=== PATIENT | male | born 1955 | race Hispanic/Latino ===

== ENCOUNTER 2016-10-15 20:32 | Observation (INO) | payer OTHER ==
[2016-10-15] MEDS ORDERED: Iohexol 240 (50 ml) PO ONE (21:10)
[2016-10-15] MEDS ORDERED: Sodium Chloride 0.9% 1,000 ML IV STA (21:11)
[2016-10-15 21:25] LABS: BASO # 0.1 K/uL (0.0-0.2); BASO % 0.8 % (0.0-2.0); EOS # 0.3 K/uL (0.0-0.7); HEMATOCRIT 43.7 % (35.0-51.0); LYMPH % 9.7 % (20.0-40.0); MEAN CELL VOLUME 86.2 fl (80.0-94.0); MEAN CORPUSCULAR HEMOGLOBIN 29.1 pg (27.0-31.0); MEAN CORPUSCULAR HGB CONC 33.7 g/dL (33.0-37.0); MONO # 0.5 K/uL (0.0-0.8); MONO % 5.1 % (0.0-10.0); NEUT # 8.3 K/uL (1.8-7.0); NEUT % 81.4 % (50.0-75.0); PLATELET COUNT 220 K/uL (130-400); WHITE BLOOD COUNT 10.2 K/uL (4.8-10.8)
[2016-10-15 21:35] LABS: ALB/GLOB RATIO 1.5 (1.0-2.1); ALKALINE PHOSPHATASE 88 U/L (38-126); ALT/SGPT 32 U/L (21-72); AST/SGOT 23 U/L (17-59); BILIRUBIN,TOTAL 0.8 mg/dl (0.2-1.3); BLOOD UREA NITROGEN 18 mg/dl (9-20); CARBON DIOXIDE 25 mmol/L (22-30); CHLORIDE 104 mmol/L (98-107); GFR AFRICAN-AMERICAN > 60; GLUCOSE,RANDOM 115 mg/dL (75-110); LIPASE 108 U/L (23-300); POTASSIUM 4.3 MMOL/L (3.6-5.0); SODIUM 141 mmol/l (132-148); TOTAL PROTEIN 7.9 G/DL (6.3-8.2)
--- NOTE | 2016-10-15 21:40 | ED PDOC ---
HPI: Abdomen Time Seen by Provider: 10/15/16 21:02 Chief Complaint (Nursing): Abdominal Pain Chief Complaint (Provider): Abdominal Pain History Per: Patient History/Exam Limitations: no limitations Onset/Duration Of Symptoms: Hrs Additional Complaint(s): Patient is a 60 year old male with a past medical history of Crohn's disease, gastroesophageal reflux disease, and hypertension presenting to the emergency department for right lower quadrant abdominal pain since 6:30 p.m. today with associated nausea and retching (but no emesis). Reports that he usually has left -sided abdominal cramps because of his Crohn's but this time the pain is different in quality, intensity, and location. Of note, he was instructed by his GI doctor to discontinue one of his medications for Crohn's a week ago but restarted it last night. Denies fever. PCP: none provided. Past Medical History Reviewed: Historical Data, Nursing Documentation, Vital Signs Vital Signs: Last Vital Signs Temp 97.8 F 10/15/16 20:43 Pulse 82 10/16/16 00:14 Resp 16 10/16/16 00:14 BP 145/88 10/16/16 00:14 Pulse Ox 100 10/16/16 01:00 - Medical History PMH: Crohn's Disease, GERD, HTN - Surgical History Surgical History: No Surg Hx - Family History Family History: States: Unknown Family Hx - Social History Current smoker - smoking cessation education provided: No Ex-Smoker (has not smoked in the last 12 months): No Alcohol: None Drugs: Denies - Home Medications Home Medications: Ambulatory Orders Medication Instructions Recorded Acetaminophen/Hydrocodone Bi 1 tab PO Q8 #12 tab 10/16/16 [Vicodin 300 mg-5 mg] Docusate Sodium [Dulcolax Stool 100 mg PO DAILY #15 capsule 10/16/16 Softener] Ibuprofen [Motrin Tab] 600 mg PO Q6 #30 tab 10/16/16 Tamsulosin [Flomax] 0.4 mg PO DAILY #12 cap 10/16/16 - Allergies Allergies/Adverse Reactions: Allergies Allergy/AdvReac Type Severity Reaction Status Date / Time No Known Allergies Allergy Verified 10/15/16 21:10 Review of Systems ROS Statement: Except As Marked, All Systems Reviewed And Found Negative Constitutional: Negative for: Fever Gastrointestinal: Positive for: Nausea, Abdominal Pain (Right lower quadrant abdominal pain. Abdomen is more bloated than usual.), Other (retching). Negative for: Vomiting Physical Exam - Reviewed Nursing Documentation Reviewed: Yes Vital Signs Reviewed: Yes - Physical Exam Appears: Positive for: Well, Non-toxic, No Acute Distress Head Exam: Positive for: ATRAUMATIC, NORMAL INSPECTION, NORMOCEPHALIC Skin: Positive for: Normal Color, Warm, Dry Eye Exam: Positive for: EOMI, Normal appearance, PERRL ENT: Positive for: Normal ENT Inspection Neck: Positive for: Normal, Painless ROM, Supple Cardiovascular/Chest: Positive for: Regular Rate, Rhythm. Negative for: Murmur Respiratory: Positive for: Normal Breath Sounds. Negative for: Accessory Muscle Use, Respiratory Distress Gastrointestinal/Abdominal: Positive for: Tenderness (Diffuse mild abdominal tenderness. No point tenderness. ), Distended. Negative for: Normal Exam Back: Positive for: Normal Inspection. Negative for: L CVA Tenderness, R CVA Tenderness Extremity: Positive for: Normal ROM. Negative for: Pedal Edema Neurologic/Psych: Positive for: Alert, Oriented - Laboratory Results Result Diagrams: 10/15/16 21:18 10/15/16 21:18 - ECG O2 Sat by Pulse Oximetry: 100 (RA) Pulse Ox Interpretation: Normal Medical Decision Making Medical Decision Making: Time: 21:00 Initial impression: Crohn's disease flare up vs. appendicitis Initial Plan: Labs CT A/P PO and IV Contrast Omnipaque 50 ml PO Morphine 4 mg IVP Normal Saline 1 L Zofran 4 mg IVP Protonix 40 mg IVP Urinalysis Stat ED Observation Reevaluation Scribe Attestation: Documented by Samantha Conner, acting as a scribe for Kaiden Lynne MD. Provider Scribe Attestation: All medical record entries made by the Scribe were at my direction and personally dictated by me. I have reviewed the chart and agree that the record accurately reflects my personal performance of the history, physical exam, medical decision making, and the department course for this patient. I have also personally directed, reviewed, and agree with the discharge instructions and disposition. ED OBSERVATION Discharge: Yes Date of observation admission: 10/15/16 Time of observation admission: 21:00 - Observation admission statement Patient is being placed in observation because:: extensive work up - Goals of Observation Goals of observation are:: Diagnosis - Progress Note Progress Note: 10/15/16 22:30 Patient's condition remains stable. CT A/P pending. 10/15/16 23:14 Patient's vitals are stable. 10/16/16 00:21 CT FINDINGS FINDINGS: Lower thorax: No pulmonary airspace consolidation or pleural fluid collection in the imaged portion of the thorax. ABDOMEN: Liver: No acute findings. Gallbladder and bile ducts: No acute findings. No radiopaque gallstones. Pancreas: No acute findings. Spleen: No acute findings. Adrenals: No acute findings. Kidneys and ureters: 4 x 6 x 4 mm mid to distal right ureteral calculus. Mild to moderate dilation of the right renal collecting system and ureter. Mildly delayed enhancement of the right kidney compared to the left. Mild right perinephric fat stranding. Small, nonobstructing calculi in the right renal collecting system. Bilateral fluid attenuation renal lesions that are incompletely characterized but most likely to be benign cysts, the largest of which measures 4 cm. Stomach and bowel: No evident acute abnormality of the stomach or small bowel. Moderate amount of gas and stool in the colon. No colonic wall thickening or pericolonic fat stranding. Appendix: Normal appendix. PELVIS: Bladder: No evident acute abnormality. Reproductive: No evident acute abnormality of the imaged structures. ABDOMEN and PELVIS: Intraperitoneal space: No free intraperitoneal fluid or air. Bones/joints: No acute findings. Soft tissues: No acute findings. Vasculature: No acute findings. No abdominal aortic aneurysm. Lymph nodes: No acute findings. IMPRESSION: 1. Obstructing 6 mm mid to distal right ureteral calculus with associated mild to moderate hydronephrosis. 2. Small, nonobstructing calculi in the right renal collecting system. 3. Moderate amount of gas and stool in the colon. 4. Additional nonacute findings as described above. Follow up per institution protocol. 10/16/16 00:57 Upon re-evaluation, patient is feeling better with Toradol. Checked [place] [employer] with no recent prescriptions found. Discussed with patient the risks/benefits to narcotics, and patient verbalizes understanding that narcotics are addictive. Alternatives to narcotics also discussed. Patient is medically stable for discharge home and will follow up with a urologist at his [facility] practice; however, a referral to [facility] (urology habilitation worker) was still given. Disposition - Clinical Impression Clinical Impression: Kidney stone - Patient ED Disposition Is Patient to be Admitted: No Counseled Patient/Family Regarding: Studies Performed, Diagnosis, Need For Followup, Rx Given - Disposition Disposition Time: 21:00 Condition: FAIR - Pt Status Changed To: Hospital Disposition Of: Observation - POA Present On Arrival: None
[2016-10-15 22:14] LABS: EOSINOPHIL 4 % (0-7); NEUTROPHIL 77 % (42-75); TOTAL CELLS COUNTED 100
[2016-10-15 23:06] LABS: RBC URINE 2 /hpf (0-3); URINE BACTERIA RARE (<OCC); URINE BILIRUBIN NEGATIVE (NEGATIVE); URINE BLOOD NEGATIVE (NEGATIVE); URINE COLOR STRAW (YELLOW); URINE GLUCOSE (UA) NEG (Normal); URINE KETONE TRACE mg/dL (NEGATIVE); URINE LEUKOCYTE ESTERASE NEG Leu/uL (Negative); URINE PROTEIN NEGATIVE (NEGATIVE); URINE UROBILINOGEN 0.2-1.0 mg/dL (0.2-1.0); WBC URINE < 1 /hpf (0-5)
[2016-10-15] MEDS: Sodium Chloride 0.9% 1,000 ML IV SCH (23:13)
[2016-10-15] MEDS ORDERED: Iohexol 300 100 ML IJ ONE (23:40)
[2016-10-15] MEDS ORDERED: Sodium Chloride 0.9% 50 ML IV ONE (23:40)
[2016-10-16 00:14] VITALS: RESP 16
[2016-10-16] MEDS: Sodium Chloride 0.9% 1,000 ML IV SCH (00:53)
[2016-10-16 01:22] VITALS: BP 135/80; PULSE 83; TEMP 97.9; O2SAT 99
--- NOTE | 2016-10-16 07:52 | CT ---
PROCEDURE: CT Abdomen and Pelvis with contrast HISTORY: hx of chrons and gerd, right lower quadrant pain COMPARISON: None. TECHNIQUE: CT scan of the abdomen and pelvis was performed after intravenous administration of contrast. Oral contrast was administered. Coronal and sagittal reformatted images were obtained. Contrast dose: 95 mL Omnipaque 300 Radiation dose: Total exam DLP = 777.67 mGy-cm. This CT exam was performed using one or more of the following dose reduction techniques: Automated exposure control, adjustment of the mA and/or kV according to patient size, and/or use of iterative reconstruction technique. FINDINGS: LOWER THORAX: There is minimal subsegmental atelectasis in the lung bases. LIVER: Normal in size with homogeneous enhancement. No gross lesion or ductal dilatation. GALLBLADDER AND BILE DUCTS: There are no calcified gallstones. PANCREAS: The pancreas is normal in size and there is homogeneous enhancement without ductal dilatation or mass. SPLEEN: The spleen is normal in size and there is homogeneous enhancement without focal lesion. ADRENALS: Both adrenal glands are normal in size without discrete nodule. KIDNEYS AND URETERS: There is a 5 mm obstructing stone in the right distal ureteral with moderate diffuse dilatation of the proximal ureteral, moderate hydronephrosis and perinephric inflammatory changes. There is mild cortical atrophy in both kidneys. There are small nonobstructing stones in the right kidney, the largest in the upper pole measures 4 mm. There are tiny simple cysts in both kidneys. There is a 4.2 cm exophytic simple cyst in the lower pole of the left kidney. VASCULATURE: There are early atherosclerotic aortoiliac calcifications. No aortic aneurysm. BOWEL: The small bowel loops are normal in caliber. There is large amount of stool in the colon. APPENDIX: No inflammatory changes in the right lower quadrant. PERITONEUM: No free fluid. No free air. LYMPH NODES: No enlarged lymph nodes. BLADDER: Grossly normal in appearance. REPRODUCTIVE: The prostate gland is normal in size. BONES: No acute fracture. There is mild degenerative disc disease at L4-5 and L5-S1. OTHER FINDINGS: There are bilateral small fat containing inguinal hernias, larger on the right. IMPRESSION: 1. Moderate right obstructive uropathy resulting from a 5 mm stone in the right distal ureter. 2. Small nonobstructing stones in the right kidney, the largest in the upper pole measures 4 mm. 3. Constipation. No evidence of bowel obstruction. A preliminary report was provided by [facility] services.
== END 2016-10-16 01:22 | disposition home or self-care (01) ==
LOC: H.ER 20:32 → H.EROBSV 21:00
PROVIDERS: ADMIT Emergency Medicine; ATTEND Emergency Medicine
DX: N13.2 Hydronephrosis with renal and ureteral calculous obstruction (principal); I10 Essential (primary) hypertension; K21.9 Gastro-esophageal reflux disease without esophagitis; K50.90 Crohn's disease, unspecified, without complications
CPT/HCPCS: 74177; 80053; 81003; 83605; 83690; 85025; 96361; 96374; 96375; 96376; 99283; C9113; G0378; J1885; J2270; J2405; J2765; J7040; Q9966; Q9967